=== PATIENT | male | born 1955 | race Caucasian/White ===

== ENCOUNTER 2019-04-26 09:00 | Observation (INO) ==
[2019-04-26] MEDS ORDERED: Mag Hydrox/Al Hydrox/Simeth 30 ML UDC PO PRN (11:00)
[2019-04-26] MEDS ORDERED: Naloxone 0.4 MG/ML INJ IVP PRN (11:00)
[2019-04-26 11:25] LABS: Basophils % 0.7 %; Eosinophils # 0.1 K/mcL (0.0-0.6); Eosinophils % 1.6 %; Hematocrit 44.2 % (37.5-50.1); Hemoglobin 15.9 g/dL (12.9-16.9); Immature Granulocytes % 0.4 % (0-4); Lymphocytes # 1.8 K/mcL (0.6-4.6); Mean Corpuscular Hemoglobin 35.1 pg (28.0-33.3); Mean Corpuscular Volume 97.6 fL (83.0-100.0); Monocytes # 0.6 K/mcL (0.0-1.3); Monocytes % 10.6 %; Neutrophils # 3.1 K/mcL (1.6-8.9); Platelet Count 190 K/mcL (140-400); Red Blood Count 4.53 M/mcL (4.19-5.50); Red Cell Distribution Width 12.7 % (11.5-14.5); Segmented Neutrophils % 54.7 %; White Blood Count 5.7 K/mcL (4.3-11.1)
[2019-04-26 11:43] LABS: BUN/Creatinine Ratio 16 (6-26); Blood Urea Nitrogen 18 mg/dL (8-23); Calcium 8.7 mg/dL (8.6-10.3); Carbon Dioxide 23 mEq/L (23-29); Chloride 109 mEq/L (98-107); Glucose 102 mg/dL (70-105); Osmolality,Calculated 286 (280-300); Sodium 137 mEq/L (136-145); eGFR For African Americans > 60 (> 60); eGFR For Non-African Americans > 60 (> 60)
[2019-04-26] MEDS: carvediloL 6.25 MG TABLET PO SCH (18:49)
[2019-04-26] MEDS: Acetaminophen 325 MG TABLET PO PRN (20:28)
[2019-04-27] MEDS ORDERED: Isosorbide MONOnitrate (24 HR) 30 MG TAB.ER.24H PO SCH (09:00)
[2019-04-27] MEDS: Aspirin Enteric Coated 81 MG Tablet PO SCH (09:18)
[2019-04-27] MEDS: DilTIAZem CD (24hr) 240 MG CAP.ER.24H PO SCH (09:18)
[2019-04-27] MEDS: carvediloL 6.25 MG TABLET PO SCH (09:20)
[2019-04-27] MEDS: Acetaminophen 325 MG TABLET PO PRN (12:15)
[2019-04-27] MEDS ORDERED: GI Cocktail 40 ML EACH PO ONE (12:49)
[2019-04-27] MEDS ORDERED: Isosorbide MONOnitrate (24 HR) 30 MG TAB.ER.24H PO STA (14:02)
[2019-04-27] MEDS ORDERED: *HR* Rivaroxaban 10 MG TABLET PO SCH (17:00)
[2019-04-28 06:32] VITALS: BP 119/74
[2019-04-28] MEDS ORDERED: Isosorbide MONOnitrate (24 HR) 30 MG TAB.ER.24H PO SCH (09:00)
[2019-04-28] MEDS: DilTIAZem CD (24hr) 240 MG CAP.ER.24H PO SCH (09:14)
[2019-04-28] MEDS: Aspirin Enteric Coated 81 MG Tablet PO SCH (09:31)
[2019-04-29] MEDS ORDERED: DilTIAZem CD (24hr) 120 MG CAP.ER.24H PO SCH (09:00)
== END 2019-04-28 11:07 | disposition home or self-care (01) ==
LOC: 3BNU
PROVIDERS: ADMIT Internal Medicine Clinical Cardiac Electrophysiology; ATTEND Internal Medicine Clinical Cardiac Electrophysiology

== ENCOUNTER 2020-03-09 14:21 | Inpatient (IN) ==
[2020-03-09 15:29] LABS: Basophils % 0.6 %; Eosinophils # 0.1 K/mcL (0.0-0.6); Eosinophils % 2.3 %; Hematocrit 23.4 % (37.5-50.1); Hemoglobin 6.8 g/dL (12.9-16.9); Immature Granulocytes % 0.4 % (0-4); Lymphocytes # 1.5 K/mcL (0.6-4.6); Lymphocytes % 28.1 %; Mean Corpuscular HGB Conc 29.1 g/dL (31.6-35.5); Mean Corpuscular Hemoglobin 24.8 pg (28.0-33.3); Mean Corpuscular Volume 85.4 fL (83.0-100.0); Mean Platelet Volume 9.7 fL (9.4-12.4); Monocytes # 0.5 K/mcL (0.0-1.3); Monocytes % 9.8 %; Neutrophils # 3.1 K/mcL (1.6-8.9); Platelet Count 323 K/mcL (140-400); Red Blood Count 2.74 M/mcL (4.19-5.50); Red Cell Distribution Width 16.1 % (11.5-14.5); Segmented Neutrophils % 58.8 %; White Blood Count 5.2 K/mcL (4.3-11.1)
[2020-03-09 15:51] LABS: BUN/Creatinine Ratio 8 (6-26); Blood Urea Nitrogen 9 mg/dL (8-23); Calcium 8.5 mg/dL (8.6-10.3); Carbon Dioxide 23 mEq/L (23-29); Chloride 102 mEq/L (98-107); Glucose 157 mg/dL (70-105); Osmolality,Calculated 282 (280-300); Potassium 3.5 mEq/L (3.5-5.1); Sodium 135 mEq/L (136-145); eGFR For African Americans > 60 (> 60); eGFR For Non-African Americans > 60 (> 60)
[2020-03-09 15:52] LABS: Troponin I < 0.03 ng/mL (< 0.04)
[2020-03-09] MEDS ORDERED: Pantoprazole 40 MG VIAL IVP ONE (16:24)
[2020-03-09 16:59] LABS: % Iron Saturation 4 % (20-55); Iron 23 mcg/dL (65-175); Transferrin 402 mg/dL (203-362)
[2020-03-09] MEDS ORDERED: 0.9 % Sodium Chloride 250 ML ONE (18:21)
[2020-03-09] MEDS: Aspirin Enteric Coated 81 MG Tablet PO SCH (22:34)
[2020-03-09] MEDS: Nicotine 7 MG PATCH.TD24 TD SCH (22:35)
[2020-03-10 00:58] LABS: INR 1.4; Prothrombin Time 15.4 Seconds (9.4-12.1)
[2020-03-10 01:01] LABS: Activated Partial Thrombo Time 32.6 Seconds (26.0-36.0)
[2020-03-10 01:03] LABS: BUN/Creatinine Ratio 8 (6-26); Blood Urea Nitrogen 8 mg/dL (8-23); Calcium 8.7 mg/dL (8.6-10.3); Carbon Dioxide 23 mEq/L (23-29); Chloride 102 mEq/L (98-107); Glucose 157 mg/dL (70-105); Osmolality,Calculated 282 (280-300); Potassium 3.1 mEq/L (3.5-5.1); Sodium 135 mEq/L (136-145); eGFR For African Americans > 60 (> 60); eGFR For Non-African Americans > 60 (> 60)
[2020-03-10 01:16] LABS: Hematocrit 26.1 % (37.5-50.1); Hemoglobin 7.5 g/dL (12.9-16.9)
[2020-03-10] MEDS ORDERED: 0.9 % Sodium Chloride 250 ML IVC SCH (02:00)
[2020-03-10 07:32] LABS: Hematocrit 28.2 % (37.5-50.1); Hemoglobin 8.3 g/dL (12.9-16.9)
[2020-03-10 07:37] LABS: Basophils % 0.5 %; Eosinophils # 0.1 K/mcL (0.0-0.6); Hematocrit 28.3 % (37.5-50.1); Hemoglobin 8.5 g/dL (12.9-16.9); Immature Granulocytes % 0.3 % (0-4); Lymphocytes # 1.3 K/mcL (0.6-4.6); Mean Corpuscular Hemoglobin 25.8 pg (28.0-33.3); Mean Platelet Volume 9.7 fL (9.4-12.4); Monocytes # 0.6 K/mcL (0.0-1.3); Monocytes % 16.2 %; Neutrophils # 1.7 K/mcL (1.6-8.9); Platelet Count 297 K/mcL (140-400); Red Blood Count 3.29 M/mcL (4.19-5.50); Red Cell Distribution Width 15.3 % (11.5-14.5); White Blood Count 3.7 K/mcL (4.3-11.1)
[2020-03-10] MEDS: Aspirin Enteric Coated 81 MG Tablet PO SCH (07:57)
[2020-03-10] MEDS: Nicotine 7 MG PATCH.TD24 TD SCH (07:58)
[2020-03-10] MEDS: Pantoprazole 40 MG VIAL IVP SCH ×2 (08:01→17:01)
[2020-03-10] MEDS: Tiotropium 18 MCG inhalation IH SCH (08:15)
[2020-03-10] MEDS: carvediloL 6.25 MG TABLET PO SCH ×2 (09:09→17:01)
[2020-03-10] MEDS: DilTIAZem CD (24hr) 120 MG CAP.ER.24H PO SCH (09:09)
[2020-03-10] MEDS ORDERED: *HR* FentaNYL (PF) 100 MCG/2 ML VIAL ONE (09:25)
[2020-03-10] MEDS ORDERED: *HR* Midazolam HCl 5 MG/5 ML VIAL IVP ONE ×2 (09:25→09:33)
[2020-03-10] MEDS ORDERED: *HR* FentaNYL (PF) 100 MCG/2 ML VIAL IVP ONE (09:33)
[2020-03-10] MEDS ORDERED: Simethicone 40 MG/0.6 ML MLS IR ONE (09:33)
[2020-03-10] MEDS ORDERED: Tetracaine/Benzocaine/Butamben 1 SPRAY AEROSOL MM ONE (09:33)
[2020-03-10] MEDS ORDERED: Ferumoxytol 510 MG in 0.9 % Sodium Chloride 100 ML IVPB ONE (10:07)
[2020-03-10] MEDS: Isosorbide MONOnitrate (24 HR) 30 MG TAB.ER.24H PO SCH (11:43)
[2020-03-10 12:37] LABS: Hematocrit 27.7 % (37.5-50.1); Hemoglobin 8.4 g/dL (12.9-16.9)
[2020-03-10 15:38] LABS: Hematocrit 28.9 % (37.5-50.1); Hemoglobin 8.5 g/dL (12.9-16.9)
[2020-03-11] MEDS: Pantoprazole 40 MG VIAL IVP SCH (05:03)
[2020-03-11 07:17] LABS: Hematocrit 28.7 % (37.5-50.1); Hemoglobin 8.3 g/dL (12.9-16.9); Mean Corpuscular HGB Conc 28.9 g/dL (31.6-35.5); Mean Corpuscular Hemoglobin 25.3 pg (28.0-33.3); Mean Corpuscular Volume 87.5 fL (83.0-100.0); Mean Platelet Volume 9.5 fL (9.4-12.4); Platelet Count 277 K/mcL (140-400); Red Blood Count 3.28 M/mcL (4.19-5.50); Red Cell Distribution Width 15.7 % (11.5-14.5)
[2020-03-11 07:36] LABS: BUN/Creatinine Ratio 10 (6-26); Blood Urea Nitrogen 10 mg/dL (8-23); Calcium 8.5 mg/dL (8.6-10.3); Carbon Dioxide 24 mEq/L (23-29); Chloride 109 mEq/L (98-107); Glucose 110 mg/dL (70-105); Osmolality,Calculated 286 (280-300); Potassium 4.1 mEq/L (3.5-5.1); Sodium 138 mEq/L (136-145); eGFR For African Americans > 60 (> 60); eGFR For Non-African Americans > 60 (> 60)
[2020-03-11] MEDS: Tiotropium 18 MCG inhalation IH SCH (07:49)
[2020-03-11] MEDS: Nicotine 7 MG PATCH.TD24 TD SCH (10:04)
[2020-03-11] MEDS: carvediloL 6.25 MG TABLET PO SCH (10:04)
[2020-03-11] MEDS: DilTIAZem CD (24hr) 120 MG CAP.ER.24H PO SCH (10:04)
[2020-03-11] MEDS: Isosorbide MONOnitrate (24 HR) 30 MG TAB.ER.24H PO SCH (10:04)
[2020-03-11] MEDS: Aspirin Enteric Coated 81 MG Tablet PO SCH (10:04)
[2020-03-11 10:29] VITALS: BP 154/74
== END 2020-03-11 12:03 | disposition home or self-care (01) | DRG 378 ==
LOC: 3BNU 14:21 → EMEROOARM 14:21 → 3BNU 17:20
PROVIDERS: ADMIT Internal Medicine; ATTEND Internal Medicine
PROC: ENDOEBX (2020-03-10 13:25)

== ENCOUNTER 2020-04-17 08:21 | Inpatient (IN) ==
[2020-04-17 10:18] LABS: Basophils % 0.5 %; Eosinophils # 0.1 K/mcL (0.0-0.6); Eosinophils % 3.4 %; Hematocrit 33.4 % (37.5-50.1); Lymphocytes # 1.3 K/mcL (0.6-4.6); Mean Corpuscular HGB Conc 29.9 g/dL (31.6-35.5); Mean Corpuscular Hemoglobin 25.9 pg (28.0-33.3); Mean Corpuscular Volume 86.5 fL (83.0-100.0); Monocytes # 0.5 K/mcL (0.0-1.3); Monocytes % 11.9 %; Neutrophils # 1.9 K/mcL (1.6-8.9); Platelet Count 214 K/mcL (140-400); Red Blood Count 3.86 M/mcL (4.19-5.50); Red Cell Distribution Width 18.9 % (11.5-14.5); Segmented Neutrophils % 50.2 %; White Blood Count 3.8 K/mcL (4.3-11.1)
[2020-04-17 10:34] LABS: BUN/Creatinine Ratio 14 (6-26); Blood Urea Nitrogen 15 mg/dL (8-23); Calcium 8.4 mg/dL (8.6-10.3); Carbon Dioxide 24 mEq/L (23-29); Chloride 108 mEq/L (98-107); Glucose 120 mg/dL (70-105); Osmolality,Calculated 290 (280-300); Potassium 3.7 mEq/L (3.5-5.1); Sodium 139 mEq/L (136-145); eGFR For African Americans > 60 (> 60); eGFR For Non-African Americans > 60 (> 60)
[2020-04-17] MEDS ORDERED: Levalbuterol 1 PUFF INHALER IH PRN (11:28)
[2020-04-17] MEDS: *HR* Rivaroxaban 10 MG TABLET PO SCH (11:48)
[2020-04-17] MEDS: Nicotine 21 MG PATCH.TD24 TD SCH (11:57)
[2020-04-17] MEDS: Tiotropium 18 MCG inhalation IH SCH (11:57)
[2020-04-18] MEDS: Tiotropium 18 MCG inhalation IH SCH (08:06)
[2020-04-18] MEDS: Nicotine 21 MG PATCH.TD24 TD SCH (08:53)
[2020-04-18] MEDS: hydroCHLOROthiazide 25 MG TABLET PO SCH (08:53)
[2020-04-18] MEDS: Aspirin Enteric Coated 81 MG Tablet PO SCH (08:53)
[2020-04-18] MEDS: Isosorbide MONOnitrate (24 HR) 60 MG TAB.ER.24H PO SCH (08:53)
[2020-04-18] MEDS: DilTIAZem CD (24hr) 120 MG CAP.ER.24H PO SCH (08:53)
[2020-04-18] MEDS: *HR* Rivaroxaban 10 MG TABLET PO SCH (17:34)
[2020-04-19] MEDS: Tiotropium 18 MCG inhalation IH SCH (07:25)
[2020-04-19] MEDS: Nicotine 21 MG PATCH.TD24 TD SCH (09:14)
[2020-04-19] MEDS: hydroCHLOROthiazide 25 MG TABLET PO SCH (09:15)
[2020-04-19] MEDS: DilTIAZem CD (24hr) 120 MG CAP.ER.24H PO SCH (09:15)
[2020-04-19] MEDS: Isosorbide MONOnitrate (24 HR) 60 MG TAB.ER.24H PO SCH (09:15)
[2020-04-19] MEDS: Aspirin Enteric Coated 81 MG Tablet PO SCH (09:15)
[2020-04-19] MEDS: *HR* Rivaroxaban 10 MG TABLET PO SCH (17:04)
[2020-04-19 19:16] VITALS: BP 122/68
== END 2020-04-19 19:40 | disposition home or self-care (01) | DRG 309 ==
LOC: 3ANU
PROVIDERS: ADMIT Internal Medicine Clinical Cardiac Electrophysiology; ATTEND Internal Medicine Clinical Cardiac Electrophysiology

== ENCOUNTER 2020-08-14 07:22 | Observation (INO) ==
[2020-08-14] MEDS ORDERED: 0.9 % Sodium Chloride 1,000 ML IVC SCH (07:45)
[2020-08-14] MEDS ORDERED: *HR* Heparin 10,000 UNIT/10 ML VIAL ONE (07:57)
[2020-08-14] MEDS ORDERED: Protamine Sulfate 50 MG/5 ML VIAL IVP ONE ×3 (07:57→10:51)
[2020-08-14] MEDS ORDERED: Heparin 1,000 UNITS/500 mL 2,000 ML ONE (07:57)
[2020-08-14] MEDS ORDERED: 0.9 % Sodium Chloride 1,000 ML ONE ×2 (07:57→10:41)
[2020-08-14] MEDS ORDERED: ISOVUE-370 200 ML INFUS..BTL ONE (07:58)
[2020-08-14] MEDS ORDERED: *HR* FentaNYL (PF) 250 MCG/5 ML VIAL ONE (08:13)
[2020-08-14 08:46] LABS: INR 3.4; Prothrombin Time 38.3 Seconds (9.4-12.1)
[2020-08-14] MEDS ORDERED: Naloxone 0.4 MG/ML INJ IVP PRN (11:04)
[2020-08-14] MEDS ORDERED: Levalbuterol 1 PUFF INHALER IH PRN (12:00)
[2020-08-14] MEDS ORDERED: Lidocaine -MPF 2% 5 ML VIAL SQ ONE (14:20)
[2020-08-14] MEDS ORDERED: EPHEDrine 50 MG/ML VIAL IVP ONE (14:20)
[2020-08-14] MEDS ORDERED: Ondansetron 4 MG/2 ML VIAL IVP ONE (14:20)
[2020-08-14] MEDS ORDERED: *HR* Phenylephrine 10 MG/ML VIAL IVC ONE (14:20)
[2020-08-14] MEDS ORDERED: *HR* Succinylcholine 200 MG/10 ML VIAL IVP ONE (14:20)
[2020-08-14] MEDS ORDERED: *HR* Propofol 200 MG/20 ML VIAL IVP ONE (14:20)
[2020-08-14] MEDS ORDERED: *HR* Rocuronium Bromide 50 MG/5 ML VIAL IVP ONE (14:20)
[2020-08-15] MEDS ORDERED: Isosorbide MONOnitrate (24 HR) 30 MG TAB.ER.24H PO SCH (09:00)
[2020-08-15] MEDS ORDERED: hydroCHLOROthiazide 25 MG TABLET PO SCH (09:00)
[2020-08-15] MEDS ORDERED: amLODIPine 5 MG TABLET PO SCH (09:00)
[2020-08-15] MEDS ORDERED: DilTIAZem CD (24hr) 120 MG CAP.ER.24H PO SCH (09:00)
[2020-08-15] MEDS ORDERED: Aspirin Enteric Coated 81 MG Tablet PO SCH (09:00)
[2020-08-15] MEDS ORDERED: Tiotropium 18 MCG inhalation IH SCH (09:00)
[2020-08-15 11:17] VITALS: BP 116/76
== END 2020-08-15 13:10 | disposition home or self-care (01) ==
LOC: INVDIALAB 07:22 → ICNU 14:19 → INTOOBSV 14:19
PROVIDERS: ADMIT Internal Medicine Clinical Cardiac Electrophysiology; ATTEND Internal Medicine Clinical Cardiac Electrophysiology

== ENCOUNTER 2020-09-28 10:07 | Inpatient (IN) ==
[2020-09-28 11:01] LABS: Immature Granulocytes % 0.4 % (0-4); Red Cell Distribution Width 17.5 % (11.5-14.5)
[2020-09-28 11:02] LABS: Basophils % 0.2 %; Eosinophils # 0.2 K/mcL (0.0-0.6); Eosinophils % 3.2 %; Hematocrit 24.1 % (37.5-50.1); Lymphocytes # 1.1 K/mcL (0.6-4.6); Lymphocytes % 22.9 %; Mean Corpuscular Hemoglobin 24.6 pg (28.0-33.3); Mean Corpuscular Volume 84.6 fL (83.0-100.0); Mean Platelet Volume 9.4 fL (9.4-12.4); Monocytes # 0.4 K/mcL (0.0-1.3); Monocytes % 8.5 %; Neutrophils # 3.1 K/mcL (1.6-8.9); Platelet Count 259 K/mcL (140-400); Red Blood Count 2.85 M/mcL (4.19-5.50); Segmented Neutrophils % 64.8 %; White Blood Count 4.7 K/mcL (4.3-11.1)
[2020-09-28 11:03] LABS: Activated Partial Thrombo Time 35.6 Seconds (26.0-36.0)
[2020-09-28 11:09] LABS: Hypochromasia Present (Not Present); Platelet Estimate Normal (Normal)
[2020-09-28 11:10] LABS: BUN/Creatinine Ratio 9 (6-26); Blood Urea Nitrogen 9 mg/dL (8-23); Calcium 8.6 mg/dL (8.6-10.3); Carbon Dioxide 29 mEq/L (23-29); Chloride 104 mEq/L (98-107); Glucose 135 mg/dL (70-105); Lipase 42 Units/L (11-82); Osmolality,Calculated 289 (280-300); Sodium 139 mEq/L (136-145); Troponin I < 0.03 ng/mL (< 0.04); eGFR For African Americans > 60 (> 60); eGFR For Non-African Americans > 60 (> 60)
[2020-09-28 11:14] LABS: INR 2.7; Prothrombin Time 30.8 Seconds (9.4-12.1)
[2020-09-28] MEDS ORDERED: Isovue-370 500 ML BOTTLE IVP ONE (11:44)
[2020-09-28] MEDS ORDERED: Doxycycline 100 MG in 0.9 % Sodium Chloride Mini Bag 100 ML IVPB ONE (12:43)
[2020-09-28] MEDS ORDERED: cefTRIAXone 1,000 MG in 0.9 % Sodium Chloride Mini Bag 100 ML IVPB ONE (12:43)
[2020-09-28 12:53] LABS: Anisocytosis 1+ (Not Present)
[2020-09-28] MEDS: Aspirin 81 MG TAB.CHEW PO SCH (13:14)
[2020-09-28] MEDS ORDERED: Naloxone 0.4 MG/ML INJ IVP PRN (15:36)
[2020-09-28] MEDS ORDERED: Ondansetron 4 MG/2 ML VIAL IVP PRN (15:43)
[2020-09-28] MEDS ORDERED: 0.9 % Sodium Chloride 250 ML IVC SCH (16:00)
[2020-09-28] MEDS ORDERED: SODIUM CHLORIDE/NAHCO3/KCL/PEG 4,000 ML SOLN.RECON PO ONE (17:00)
[2020-09-28] MEDS ORDERED: 0.9 % Sodium Chloride 250 ML ONE (17:01)
[2020-09-28] MEDS ORDERED: *HR* LORazepam 1 MG TABLET PO ONE (20:54)
[2020-09-28] MEDS ORDERED: Nicotine 21 MG PATCH.TD24 TD SCH (21:30)
[2020-09-29 02:17] LABS: Basophils % 0.2 %; Eosinophils # 0.2 K/mcL (0.0-0.6); Eosinophils % 4.4 %; Hematocrit 26.8 % (37.5-50.1); Hemoglobin 7.8 g/dL (12.9-16.9); Immature Granulocytes % 0.2 % (0-4); Lymphocytes # 1.3 K/mcL (0.6-4.6); Lymphocytes % 29.7 %; Mean Corpuscular HGB Conc 29.1 g/dL (31.6-35.5); Mean Corpuscular Hemoglobin 24.5 pg (28.0-33.3); Mean Corpuscular Volume 84.3 fL (83.0-100.0); Mean Platelet Volume 9.4 fL (9.4-12.4); Monocytes # 0.5 K/mcL (0.0-1.3); Monocytes % 10.7 %; Neutrophils # 2.4 K/mcL (1.6-8.9); Platelet Count 263 K/mcL (140-400); Red Blood Count 3.18 M/mcL (4.19-5.50); Red Cell Distribution Width 17.2 % (11.5-14.5); Segmented Neutrophils % 54.8 %; White Blood Count 4.3 K/mcL (4.3-11.1)
[2020-09-29 02:39] LABS: % Iron Saturation 20 % (20-55); BUN/Creatinine Ratio 8 (6-26); Blood Urea Nitrogen 7 mg/dL (8-23); Calcium 8.7 mg/dL (8.6-10.3); Carbon Dioxide 25 mEq/L (23-29); Chloride 104 mEq/L (98-107); Glucose 109 mg/dL (70-105); Iron 94 mcg/dL (65-175); Magnesium 2.1 mg/dL (1.6-2.6); Osmolality,Calculated 281 (280-300); Potassium 3.4 mEq/L (3.5-5.1); Sodium 136 mEq/L (136-145); Transferrin 330 mg/dL (203-362); eGFR For African Americans > 60 (> 60); eGFR For Non-African Americans > 60 (> 60)
[2020-09-29 03:03] LABS: Folate 16.5 ng/mL (3.0-16.0)
[2020-09-29 03:17] LABS: Ferritin < 8 ng/mL (20-250)
[2020-09-29] MEDS ORDERED: Cyanocobalamin (B-12) 1,000 MCG/ML VIAL SQ ONE (07:14)
[2020-09-29] MEDS: Iron Sucrose Complex 250 MG in 0.9 % Sodium Chloride 250 ML IVPB SCH (08:02)
[2020-09-29] MEDS: Nicotine 14 MG PATCH.TD24 TD SCH (08:10)
[2020-09-29] MEDS ORDERED: Potassium Chloride 20 MEQ, Lidocaine 1% 2 ML in 0.9 % Sodium Chloride 250 ML IVPB ONE (08:15)
[2020-09-29] MEDS: Aspirin 81 MG TAB.CHEW PO SCH (08:43)
[2020-09-29] MEDS ORDERED: Lidocaine -MPF 2% 2 ML VIAL ONE (08:56)
[2020-09-29] MEDS ORDERED: *HR* Propofol 200 MG/20 ML VIAL IVP ONE ×2 (08:56→08:57)
[2020-09-29 10:51] LABS: INR 1.2; Prothrombin Time 14.3 Seconds (9.4-12.1)
[2020-09-29] MEDS ORDERED: Levalbuterol 1 PUFF INHALER IH PRN (12:00)
[2020-09-29 12:50] LABS: Estimated Average Glucose 134 mg/dl
[2020-09-29] MEDS: Isosorbide MONOnitrate (24 HR) 30 MG TAB.ER.24H PO SCH (13:46)
[2020-09-29] MEDS: DilTIAZem CD (24hr) 120 MG CAP.ER.24H PO SCH (13:46)
[2020-09-29] MEDS ORDERED: Gabapentin 100 MG CAPSULE PO ONE (14:32)
[2020-09-29] MEDS: *HR* Rivaroxaban 10 MG TABLET PO SCH (18:20)
[2020-09-29] MEDS: Acetaminophen 325 MG TABLET PO PRN (22:13)
[2020-09-30 02:28] LABS: Basophils % 0.7 %; Eosinophils # 0.2 K/mcL (0.0-0.6); Eosinophils % 3.6 %; Hematocrit 26.8 % (37.5-50.1); Hemoglobin 7.4 g/dL (12.9-16.9); Immature Granulocytes % 0.4 % (0-4); Lymphocytes % 29.9 %; Mean Corpuscular HGB Conc 27.6 g/dL (31.6-35.5); Mean Corpuscular Hemoglobin 23.6 pg (28.0-33.3); Mean Corpuscular Volume 85.4 fL (83.0-100.0); Mean Platelet Volume 9.4 fL (9.4-12.4); Monocytes # 0.5 K/mcL (0.0-1.3); Monocytes % 11.7 %; Neutrophils # 2.4 K/mcL (1.6-8.9); Platelet Count 294 K/mcL (140-400); Red Blood Count 3.14 M/mcL (4.19-5.50); Red Cell Distribution Width 17.5 % (11.5-14.5); Segmented Neutrophils % 53.7 %; White Blood Count 4.5 K/mcL (4.3-11.1)
[2020-09-30 02:30] LABS: Lymphocytes # 1.4 K/mcL (0.6-4.6)
[2020-09-30 02:44] LABS: BUN/Creatinine Ratio 15 (6-26); Blood Urea Nitrogen 14 mg/dL (8-23); Calcium 8.8 mg/dL (8.6-10.3); Carbon Dioxide 26 mEq/L (23-29); Chloride 111 mEq/L (98-107); Glucose 121 mg/dL (70-105); Magnesium 2.1 mg/dL (1.6-2.6); Osmolality,Calculated 290 (280-300); Potassium 3.9 mEq/L (3.5-5.1); Sodium 139 mEq/L (136-145); eGFR For African Americans > 60 (> 60); eGFR For Non-African Americans > 60 (> 60)
[2020-09-30 02:53] LABS: Anisocytosis 1+ (Not Present); Hypochromasia Present (Not Present); Macrocytosis Present (Not Present); Platelet Estimate Normal (Normal)
[2020-09-30] MEDS ORDERED: *HR* Rivaroxaban 10 MG TABLET PO SCH (09:00)
[2020-09-30] MEDS: Budesonide/Formoterol 160/4.5 1 PUFF INH IH SCH ×2 (09:37→21:48)
[2020-09-30] MEDS: Tiotropium 18 MCG inhalation IH SCH (09:39)
[2020-09-30] MEDS ORDERED: 0.9 % Sodium Chloride 250 ML ONE (09:47)
[2020-09-30] MEDS: Nicotine 14 MG PATCH.TD24 TD SCH (09:49)
[2020-09-30] MEDS: DilTIAZem CD (24hr) 120 MG CAP.ER.24H PO SCH (09:50)
[2020-09-30] MEDS: Aspirin Enteric Coated 81 MG Tablet PO SCH (09:50)
[2020-09-30] MEDS: Isosorbide MONOnitrate (24 HR) 30 MG TAB.ER.24H PO SCH (09:50)
[2020-09-30] MEDS: Iron Sucrose Complex 250 MG in 0.9 % Sodium Chloride 250 ML IVPB SCH (09:51)
[2020-09-30] MEDS: Gabapentin 100 MG CAPSULE PO SCH ×2 (12:41→20:17)
[2020-09-30] MEDS: *HR* Rivaroxaban 10 MG TABLET PO SCH (16:46)
[2020-09-30] MEDS: Acetaminophen 325 MG TABLET PO PRN (16:46)
[2020-10-01 03:08] LABS: Hemoglobin 8.8 g/dL (12.9-16.9)
[2020-10-01 03:09] LABS: Basophils # 0.1 K/mcL (0.0-0.2); Basophils % 0.9 %; Eosinophils # 0.3 K/mcL (0.0-0.6); Hematocrit 31.2 % (37.5-50.1); Lymphocytes # 1.7 K/mcL (0.6-4.6); Lymphocytes % 25.6 %; Mean Corpuscular HGB Conc 28.2 g/dL (31.6-35.5); Mean Corpuscular Hemoglobin 24.8 pg (28.0-33.3); Mean Corpuscular Volume 87.9 fL (83.0-100.0); Mean Platelet Volume 9.9 fL (9.4-12.4); Monocytes # 0.6 K/mcL (0.0-1.3); Nucleated Red Blood Cells 0.4 /100 WBC (0); Platelet Count 347 K/mcL (140-400); Red Blood Count 3.55 M/mcL (4.19-5.50); Red Cell Distribution Width 17.2 % (11.5-14.5); Segmented Neutrophils % 59.5 %; White Blood Count 6.7 K/mcL (4.3-11.1)
[2020-10-01 03:12] LABS: Anisocytosis 1+ (Not Present); Hypochromasia Present (Not Present); Macrocytosis Present (Not Present); Platelet Estimate Normal (Normal)
[2020-10-01 07:20] VITALS: BP 135/82
[2020-10-01] MEDS: Gabapentin 100 MG CAPSULE PO SCH (08:09)
[2020-10-01] MEDS: DilTIAZem CD (24hr) 120 MG CAP.ER.24H PO SCH (08:09)
[2020-10-01] MEDS: Aspirin Enteric Coated 81 MG Tablet PO SCH (08:09)
[2020-10-01] MEDS: Isosorbide MONOnitrate (24 HR) 30 MG TAB.ER.24H PO SCH (08:09)
[2020-10-01] MEDS: Nicotine 14 MG PATCH.TD24 TD SCH (08:09)
[2020-10-01] MEDS: Iron Sucrose Complex 250 MG in 0.9 % Sodium Chloride 250 ML IVPB SCH (08:10)
[2020-10-01] MEDS: Tiotropium 18 MCG inhalation IH SCH (09:07)
[2020-10-01] MEDS: Budesonide/Formoterol 160/4.5 1 PUFF INH IH SCH (09:07)
== END 2020-10-01 11:50 | disposition home or self-care (01) | DRG 811 ==
LOC: EMEROOARM 10:07 → 3BNU 10:07 → SUATTDRO 14:41 → 3BNU 15:53
PROVIDERS: ADMIT Pharmacist; ATTEND Pharmacist
PROC: ENDOCBX (2020-09-29 11:00)

== ENCOUNTER 2020-11-28 08:26 | Inpatient (IN) ==
[~2020-11-28 08:26] MED LIST: Bacitracin 50,000 UNIT, Polymyxin B Sulfate 500,000 UNIT, Sodium Chloride IRRigation 1,... IR ONE
[2020-11-28] MEDS ORDERED: Ondansetron 4 MG/2 ML VIAL IVP PRN ×3 (08:29→19:16)
[2020-11-28] MEDS ORDERED: *HR* HYDROcodone/Acet 5/325 mg TABLET PO PRN (08:29)
[2020-11-28] MEDS ORDERED: *HR* HYDROmorphone PF 0.5 MG/0.5 ML SYRINGE IVP PRN (08:29)
[2020-11-28] MEDS ORDERED: Ringers Solution, Lactated 1,000 ML IVC SCH ×2 (08:30→19:16)
[2020-11-28] MEDS ORDERED: CeFAZolin Syr 2,000MG/20 ML 2,000 MG/20 ML SYRINGE IVPB ONE (09:04)
[2020-11-28] MEDS ORDERED: *HR* FentaNYL (PF) 100 MCG/2 ML VIAL ONE (10:15)
[2020-11-28] MEDS ORDERED: *HR* Propofol 200 MG/20 ML VIAL IVP ONE ×2 (10:15→16:46)
[2020-11-28] MEDS ORDERED: *HR* Midazolam HCl 2 MG/2 ML VIAL ONE (10:16)
[2020-11-28] MEDS ORDERED: *HR* Rocuronium Bromide 50 MG/5 ML VIAL ONE (10:16)
[2020-11-28] MEDS ORDERED: *HR* Succinylcholine 200 MG/10 ML VIAL IVP ONE (10:16)
[2020-11-28] MEDS ORDERED: Ondansetron 4 MG/2 ML VIAL ONE (10:16)
[2020-11-28] MEDS ORDERED: Lidocaine -MPF 2% 2 ML VIAL ONE (10:16)
[2020-11-28] MEDS ORDERED: Lidocaine HCL 4 ML Topical Solution (Laryng-O-Jet Kit Sterile Pak) TP ONE (10:25)
[2020-11-28] MEDS ORDERED: *HR* HYDROMORPHONE 2 MG/ML VIAL ONE ×2 (10:38→16:00)
[2020-11-28] MEDS ORDERED: *HR* Remifentanil 1 MG VIAL IVP ONE ×3 (11:36→16:10)
[2020-11-28] MEDS ORDERED: EPHEDrine 50 MG/ML VIAL ONE (13:11)
[2020-11-28] MEDS ORDERED: Acetaminophen IV 1,000 MG/100 ML BAG IVPB ONE (15:03)
[2020-11-28] MEDS ORDERED: Promethazine 6.25 MG in Water for inj. (sterile) 20 ML IVPB PRN (17:22)
[2020-11-28] MEDS ORDERED: *HR* Labetalol 20 MG/4 ML SYRINGE IVP PRN (17:22)
[2020-11-28] MEDS ORDERED: *HR* HYDROcodone/Acet 7.5/325 mg TABLET PO PRN (17:22)
[2020-11-28] MEDS: *HR* HYDROmorphone PF 0.5 MG/0.5 ML SYRINGE IVP PRN ×2 (17:35→17:40)
[2020-11-28] MEDS ORDERED: Levalbuterol 1 PUFF INHALER IH PRN (19:16)
[2020-11-28] MEDS ORDERED: Naloxone 0.4 MG/ML INJ IVP PRN (19:16)
[2020-11-28] MEDS: tiZANidine 4 MG TABLET PO SCH (20:31)
[2020-11-28] MEDS: *HR* OxyCODONE Immed Rel 5 MG TABLET PO PRN (20:31)
[2020-11-28] MEDS: CeFAZolin 2 GM/120 ML BAG IVPB SCH (20:32)
[2020-11-29] MEDS: *HR* OxyCODONE Immed Rel 5 MG TABLET PO PRN ×5 (01:55→18:34)
[2020-11-29] MEDS: CeFAZolin 2 GM/120 ML BAG IVPB SCH (03:38)
[2020-11-29] MEDS: tiZANidine 4 MG TABLET PO SCH ×5 (03:38→20:03)
[2020-11-29] MEDS: diazePAM 5 MG TABLET PO PRN ×2 (07:59→18:53)
[2020-11-29] MEDS: Tiotropium 10 INH DOSE IH SCH (08:52)
[2020-11-29] MEDS: Budesonide/Formoterol 160/4.5 1 PUFF INH IH SCH ×2 (08:52→20:16)
[2020-11-29] MEDS ORDERED: NON-FORMULARY MEDICATION 1 EACH EACH (Umeclidinium Bromide [Incruse Ellipta] 62.5 MCG) IH SCH (09:00)
[2020-11-29] MEDS ORDERED: NON-FORMULARY MEDICATION 1 EACH EACH (Pantoprazole Sodium [Protonix] 40 MG) PO SCH (09:00)
[2020-11-29] MEDS ORDERED: NON-FORMULARY MEDICATION 1 EACH EACH (Fluticasone/Umeclidin/Vilanter [Trelegy Ellipta 100- IH SCH (09:00)
[2020-11-29] MEDS: DilTIAZem CD (24hr) 120 MG CAP.ER.24H PO SCH (10:01)
[2020-11-29] MEDS: Acetaminophen 325 MG TABLET PO PRN ×2 (10:01→18:33)
[2020-11-29] MEDS: hydroCHLOROthiazide 25 MG TABLET PO SCH (10:02)
[2020-11-29] MEDS: Isosorbide MONOnitrate (24 HR) 30 MG TAB.ER.24H PO SCH (10:02)
[2020-11-29] MEDS: Aspirin Enteric Coated 81 MG Tablet PO SCH (10:03)
[2020-11-29] MEDS ORDERED: Temazepam 15 MG CAPSULE PO PRN (13:03)
[2020-11-29] MEDS: *HR* Rivaroxaban 10 MG TABLET PO SCH (17:01)
[2020-11-29] MEDS: Gabapentin 300 MG CAPSULE PO SCH (20:03)
[2020-11-29] MEDS: *HR* HYDROcodone/Acet 5/325 mg TABLET PO PRN (22:09)
[2020-11-30] MEDS: *HR* OxyCODONE Immed Rel 5 MG TABLET PO PRN ×4 (00:07→13:48)
[2020-11-30] MEDS: Acetaminophen 325 MG TABLET PO PRN (05:39)
[2020-11-30] MEDS: DilTIAZem CD (24hr) 120 MG CAP.ER.24H PO SCH (08:31)
[2020-11-30] MEDS: Aspirin Enteric Coated 81 MG Tablet PO SCH (08:31)
[2020-11-30] MEDS: tiZANidine 4 MG TABLET PO SCH ×4 (08:32→20:05)
[2020-11-30] MEDS: Isosorbide MONOnitrate (24 HR) 30 MG TAB.ER.24H PO SCH (08:32)
[2020-11-30] MEDS: Gabapentin 300 MG CAPSULE PO SCH ×3 (08:33→20:05)
[2020-11-30] MEDS: hydroCHLOROthiazide 25 MG TABLET PO SCH (08:33)
[2020-11-30] MEDS: Budesonide/Formoterol 160/4.5 1 PUFF INH IH SCH ×2 (10:57→20:14)
[2020-11-30] MEDS: Tiotropium 10 INH DOSE IH SCH (10:57)
[2020-11-30 11:38] LABS: Basophils % 0.4 %; Hemoglobin 6.5 g/dL (12.9-16.9)
[2020-11-30 11:40] LABS: Eosinophils % 0.4 %; Hematocrit 23.2 % (37.5-50.1); Immature Granulocytes % 0.5 % (0-4); Lymphocytes # 1.1 K/mcL (0.6-4.6); Lymphocytes % 15.1 %; Mean Corpuscular Hemoglobin 23.8 pg (28.0-33.3); Mean Platelet Volume 10.3 fL (9.4-12.4); Monocytes % 12.7 %; Neutrophils # 5.3 K/mcL (1.6-8.9); Nucleated Red Blood Cells 0.3 /100 WBC (0); Platelet Count 236 K/mcL (140-400); Red Blood Count 2.73 M/mcL (4.19-5.50); Red Cell Distribution Width 18.8 % (11.5-14.5); Segmented Neutrophils % 70.9 %; White Blood Count 7.5 K/mcL (4.3-11.1)
[2020-11-30 11:58] LABS: Alanine Aminotransferase 27 Units/L (7-52); Albumin 3.5 g/dL (3.5-5.7); Albumin/Globulin Ratio 1.1 (1.1-2.2); Alkaline Phosphatase 56 Units/L (34-104); Aspartate Amino Transferase 42 Units/L (13-39); BUN/Creatinine Ratio 13 (6-26); Bilirubin,Total 0.8 mg/dL (0.3-1.0); Blood Urea Nitrogen 14 mg/dL (8-23); Calcium 8.8 mg/dL (8.6-10.3); Carbon Dioxide 27 mEq/L (23-29); Chloride 99 mEq/L (98-107); Globulin 3.2 g/dL (2.4-3.5); Glucose 142 mg/dL (70-105); Osmolality,Calculated 279 (280-300); Potassium 3.5 mEq/L (3.5-5.1); Sodium 133 mEq/L (136-145); Total Protein 6.7 g/dL (6.4-8.9); eGFR For African Americans > 60 (> 60); eGFR For Non-African Americans > 60 (> 60)
[2020-11-30 12:09] LABS: Hypochromasia Present (Not Present); Platelet Estimate Normal (Normal); Stomatocytes 1+ (Not Present)
[2020-11-30] MEDS ORDERED: Furosemide 20 MG/2 ML VIAL IVP PRN (12:37)
[2020-11-30] MEDS ORDERED: 0.9 % Sodium Chloride 250 ML IVC SCH (12:45)
[2020-11-30 14:53] LABS: Adenovirus Not Detected (Not Detect); Bordetella Pertussis Not Detected (Not Detect); Chlamydophila pneumoniae Not Detected (Not Detect); Coronavirus 229E Not Detected (Not Detect); Coronavirus HKU1 Not Detected (Not Detect); Coronavirus NL63 Not Detected (Not Detect); Coronavirus OC43 Not Detected (Not Detect); Human Metapneumovirus Not Detected (Not Detect); Human Rhinovirus/Enterovirus Not Detected (Not Detect); Influenza A Subtype 2009 H1 Not Detected (Not Detect); Influenza B Not Detected (Not Detect); Mycoplasma pneumoniae Not Detected (Not Detect); Parainfluenza Virus 1 Not Detected (Not Detect); Parainfluenza Virus 2 Not Detected (Not Detect); Parainfluenza Virus 3 Not Detected (Not Detect); Parainfluenza Virus 4 Not Detected (Not Detect); Respiratory Syncytial Virus Not Detected (Not Detect); SARS-CoV-2 Not Detected (Not Detect)
[2020-11-30] MEDS ORDERED: 0.9 % Sodium Chloride 250 ML ONE ×2 (15:31→21:07)
[2020-11-30] MEDS ORDERED: Albuterol 2.5 MG/3 ML NEBULIZER IH PRN (16:23)
[2020-11-30] MEDS ORDERED: Azithromycin 500 MG in 0.9 % Sodium Chloride 250 ML IVPB SCH (17:00)
[2020-11-30] MEDS: Acetaminophen 325 MG TABLET PO SCH ×2 (17:11→23:45)
[2020-11-30] MEDS: *HR* Rivaroxaban 10 MG TABLET PO SCH (17:12)
[2020-11-30] MEDS: predniSONE 20 MG TABLET PO SCH (18:37)
[2020-11-30] MEDS: diazePAM 5 MG TABLET PO PRN (23:45)
[2020-11-30] MEDS: *HR* HYDROcodone/Acet 5/325 mg TABLET PO PRN (23:45)
[2020-12-01] MEDS: *HR* OxyCODONE Immed Rel 5 MG TABLET PO PRN ×4 (01:19→22:32)
[2020-12-01 01:28] LABS: Basophils % 0.2 %; Hematocrit 22.5 % (37.5-50.1); Hemoglobin 6.7 g/dL (12.9-16.9); Immature Granulocytes % 0.8 % (0-4); Lymphocytes # 0.7 K/mcL (0.6-4.6); Lymphocytes % 8.2 %; Mean Corpuscular HGB Conc 29.8 g/dL (31.6-35.5); Mean Corpuscular Hemoglobin 24.5 pg (28.0-33.3); Mean Corpuscular Volume 82.1 fL (83.0-100.0); Mean Platelet Volume 9.9 fL (9.4-12.4); Monocytes % 12.2 %; Neutrophils # 6.7 K/mcL (1.6-8.9); Nucleated Red Blood Cells 0.4 /100 WBC (0); Platelet Count 193 K/mcL (140-400); Red Blood Count 2.74 M/mcL (4.19-5.50); Red Cell Distribution Width 17.3 % (11.5-14.5); Segmented Neutrophils % 78.6 %; White Blood Count 8.5 K/mcL (4.3-11.1)
[2020-12-01 05:13] LABS: BUN/Creatinine Ratio 15 (6-26); Blood Urea Nitrogen 17 mg/dL (8-23); Calcium 8.4 mg/dL (8.6-10.3); Carbon Dioxide 25 mEq/L (23-29); Chloride 99 mEq/L (98-107); Glucose 172 mg/dL (70-105); Osmolality,Calculated 278 (280-300); Potassium 3.8 mEq/L (3.5-5.1); Sodium 131 mEq/L (136-145); eGFR For African Americans > 60 (> 60); eGFR For Non-African Americans > 60 (> 60)
[2020-12-01] MEDS: Acetaminophen 325 MG TABLET PO SCH ×4 (05:50→23:08)
[2020-12-01] MEDS: diazePAM 5 MG TABLET PO PRN (05:54)
[2020-12-01] MEDS: *HR* HYDROcodone/Acet 5/325 mg TABLET PO PRN (06:54)
[2020-12-01] MEDS: hydroCHLOROthiazide 25 MG TABLET PO SCH (08:29)
[2020-12-01] MEDS: Isosorbide MONOnitrate (24 HR) 30 MG TAB.ER.24H PO SCH (08:30)
[2020-12-01] MEDS ORDERED: *HR* OxyCODONE Immed Rel 5 MG TABLET PO ONE (08:31)
[2020-12-01] MEDS: Gabapentin 300 MG CAPSULE PO SCH ×4 (08:31→22:31)
[2020-12-01] MEDS: tiZANidine 4 MG TABLET PO SCH ×4 (08:32→22:33)
[2020-12-01] MEDS: predniSONE 20 MG TABLET PO SCH (08:32)
[2020-12-01] MEDS: Aspirin Enteric Coated 81 MG Tablet PO SCH (08:42)
[2020-12-01] MEDS: DilTIAZem CD (24hr) 120 MG CAP.ER.24H PO SCH (08:42)
[2020-12-01] MEDS: Tiotropium 10 INH DOSE IH SCH (10:08)
[2020-12-01] MEDS: Budesonide/Formoterol 160/4.5 1 PUFF INH IH SCH ×2 (10:09→22:35)
[2020-12-01] MEDS ORDERED: *HR* OxyCODONE Immed Rel 5 MG TABLET PO PRN (12:56)
[2020-12-01] MEDS ORDERED: diazePAM 5 MG TABLET PO PRN (13:00)
[2020-12-01] MEDS ORDERED: Azithromycin 250 MG TABLET PO SCH (18:00)
[2020-12-01 18:27] LABS: Hematocrit 27.3 % (37.5-50.1)
[2020-12-01 18:29] LABS: Hemoglobin 8.2 g/dL (12.9-16.9)
[2020-12-01 19:27] LABS: Hematocrit 27.3 % (37.5-50.1); Hemoglobin 8.1 g/dL (12.9-16.9)
[2020-12-02 05:15] LABS: Hematocrit 27.2 % (37.5-50.1); Hemoglobin 8.1 g/dL (12.9-16.9)
[2020-12-02] MEDS: *HR* OxyCODONE Immed Rel 5 MG TABLET PO PRN ×2 (05:51→13:44)
[2020-12-02] MEDS: Acetaminophen 325 MG TABLET PO SCH ×2 (05:52→13:45)
[2020-12-02 07:32] VITALS: BP 104/59
[2020-12-02] MEDS: Tiotropium 10 INH DOSE IH SCH (08:13)
[2020-12-02] MEDS: Budesonide/Formoterol 160/4.5 1 PUFF INH IH SCH (08:14)
[2020-12-02] MEDS: Aspirin Enteric Coated 81 MG Tablet PO SCH (09:52)
[2020-12-02] MEDS: hydroCHLOROthiazide 25 MG TABLET PO SCH (09:53)
[2020-12-02] MEDS: predniSONE 20 MG TABLET PO SCH (09:53)
[2020-12-02] MEDS: DilTIAZem CD (24hr) 120 MG CAP.ER.24H PO SCH (09:54)
[2020-12-02] MEDS: Isosorbide MONOnitrate (24 HR) 30 MG TAB.ER.24H PO SCH (09:54)
[2020-12-02] MEDS: Gabapentin 300 MG CAPSULE PO SCH ×2 (09:54→13:43)
[2020-12-02] MEDS: tiZANidine 4 MG TABLET PO SCH ×2 (09:56→13:44)
== END 2020-12-02 15:00 | disposition other institution (70) | DRG 454 ==
LOC: SAMDAY 08:26 → 3NENU 18:18
PROVIDERS: ADMIT Orthopaedic Surgery Orthopaedic Surgery of the Spine; ATTEND Orthopaedic Surgery Orthopaedic Surgery of the Spine

== ENCOUNTER 2021-01-09 17:33 | Inpatient (IN) ==
[2021-01-09 19:24] LABS: Basophils % 0.4 %; Eosinophils % 0.1 %; Hematocrit 37.4 % (37.5-50.1); Hemoglobin 11.2 g/dL (12.9-16.9); Immature Granulocytes % 0.4 % (0-4); Lymphocytes # 1.2 K/mcL (0.6-4.6); Mean Corpuscular HGB Conc 29.9 g/dL (31.6-35.5); Mean Corpuscular Hemoglobin 23.4 pg (28.0-33.3); Mean Corpuscular Volume 78.1 fL (83.0-100.0); Mean Platelet Volume 8.7 fL (9.4-12.4); Monocytes # 0.5 K/mcL (0.0-1.3); Monocytes % 7.7 %; Neutrophils # 5.1 K/mcL (1.6-8.9); Platelet Count 290 K/mcL (140-400); Red Blood Count 4.79 M/mcL (4.19-5.50); Red Cell Distribution Width 18.7 % (11.5-14.5); Segmented Neutrophils % 74.4 %; White Blood Count 6.9 K/mcL (4.3-11.1)
[2021-01-09 19:30] LABS: INR 2.5; Prothrombin Time 27.7 Seconds (9.4-12.1)
[2021-01-09 19:40] LABS: BUN/Creatinine Ratio 10 (6-26); Blood Urea Nitrogen 9 mg/dL (8-23); Carbon Dioxide 26 mEq/L (23-29); Chloride 96 mEq/L (98-107); Glucose 153 mg/dL (70-105); Osmolality,Calculated 278 (280-300); Potassium 3.5 mEq/L (3.5-5.1); Sodium 133 mEq/L (136-145); Troponin I < 0.03 ng/mL (< 0.04); eGFR For African Americans > 60 (> 60); eGFR For Non-African Americans > 60 (> 60)
[2021-01-09] MEDS ORDERED: Isovue-370 500 ML BOTTLE IVP ONE (20:20)
[2021-01-09] MEDS ORDERED: Gabapentin 300 MG CAPSULE PO ONE (20:36)
[2021-01-09] MEDS: Nitroglycerin 0.4 MG TAB.SUBL SL PRN (20:46)
[2021-01-09] MEDS ORDERED: Ondansetron ODT 4 MG TAB.RAPDIS SL PRN (20:58)
[2021-01-09] MEDS ORDERED: Naloxone 0.4 MG/ML INJ IVP PRN (20:58)
[2021-01-09] MEDS ORDERED: Perflutren Lipid Microsphere 1.3 ML in 0.9 % Sodium Chloride 8.7 ML IVP PRN (23:09)
[2021-01-09] MEDS: Acetaminophen 325 MG TABLET PO PRN (23:25)
[2021-01-10] MEDS: tiZANidine 4 MG TABLET PO SCH ×3 (00:36→23:13)
[2021-01-10] MEDS: Nicotine 14 MG PATCH.TD24 TD SCH ×2 (00:36→23:13)
[2021-01-10 02:18] LABS: Basophils % 0.4 %; Eosinophils % 0.3 %; Hematocrit 34.9 % (37.5-50.1); Hemoglobin 10.3 g/dL (12.9-16.9); Immature Granulocytes % 0.4 % (0-4); Lymphocytes # 1.3 K/mcL (0.6-4.6); Mean Corpuscular HGB Conc 29.5 g/dL (31.6-35.5); Mean Corpuscular Hemoglobin 23.6 pg (28.0-33.3); Mean Corpuscular Volume 79.9 fL (83.0-100.0); Mean Platelet Volume 8.8 fL (9.4-12.4); Monocytes # 0.6 K/mcL (0.0-1.3); Monocytes % 9.6 %; Neutrophils # 4.6 K/mcL (1.6-8.9); Platelet Count 235 K/mcL (140-400); Red Blood Count 4.37 M/mcL (4.19-5.50); Red Cell Distribution Width 18.9 % (11.5-14.5); Segmented Neutrophils % 69.3 %; White Blood Count 6.7 K/mcL (4.3-11.1)
[2021-01-10 02:37] LABS: BUN/Creatinine Ratio 13 (6-26); Blood Urea Nitrogen 11 mg/dL (8-23); Carbon Dioxide 28 mEq/L (23-29); Chloride 98 mEq/L (98-107); Glucose 142 mg/dL (70-105); Magnesium 1.8 mg/dL (1.6-2.6); Osmolality,Calculated 280 (280-300); Potassium 3.2 mEq/L (3.5-5.1); Sodium 134 mEq/L (136-145); eGFR For African Americans > 60 (> 60); eGFR For Non-African Americans > 60 (> 60)
[2021-01-10 02:39] LABS: INR 1.4; Prothrombin Time 16.3 Seconds (9.4-12.1)
[2021-01-10] MEDS: Nitroglycerin 0.4 MG TAB.SUBL SL PRN ×2 (06:53→07:35)
[2021-01-10] MEDS ORDERED: tiZANidine 4 MG TABLET PO PRN (07:57)
[2021-01-10] MEDS ORDERED: diazePAM 5 MG TABLET PO PRN (07:57)
[2021-01-10] MEDS ORDERED: Albuterol 2.5 MG/3 ML NEBULIZER IH PRN (08:00)
[2021-01-10] MEDS: Gabapentin 300 MG CAPSULE PO SCH ×4 (08:27→21:10)
[2021-01-10] MEDS: DilTIAZem CD (24hr) 120 MG CAP.ER.24H PO SCH (08:28)
[2021-01-10] MEDS ORDERED: Isosorbide MONOnitrate (24 HR) 30 MG TAB.ER.24H PO SCH (09:00)
[2021-01-10] MEDS: Tiotropium 10 INH DOSE IH SCH (10:35)
[2021-01-10 11:53] LABS: Hematocrit 35.1 % (37.5-50.1); Hemoglobin 10.3 g/dL (12.9-16.9)
[2021-01-10] MEDS ORDERED: *HR* Propofol 200 MG/20 ML VIAL IVP ONE (14:33)
[2021-01-10] MEDS ORDERED: Lidocaine -MPF 2% 2 ML VIAL ONE (14:34)
[2021-01-10] MEDS: Sucralfate 1 GM TABLET PO SCH ×2 (15:36→21:10)
[2021-01-10] MEDS: Acetaminophen 325 MG TABLET PO PRN ×2 (15:40→21:10)
[2021-01-10 17:32] LABS: Hematocrit 35.5 % (37.5-50.1); Hemoglobin 10.5 g/dL (12.9-16.9)
[2021-01-10] MEDS ORDERED: Doxycycline 100 MG in 0.9 % Sodium Chloride Mini Bag 100 ML IVPB SCH (18:00)
[2021-01-10] MEDS ORDERED: Temazepam 15 MG CAPSULE PO SCH (21:00)
[2021-01-10] MEDS: Ranolazine 500 MG TAB.ER.12H PO SCH (21:10)
[2021-01-10 22:44] LABS: Hematocrit 34.5 % (37.5-50.1)
[2021-01-10] MEDS ORDERED: Ipratropium/Albuterol Neb 3 ML IH ONE (23:29)
[2021-01-11 04:28] LABS: Basophils % 0.5 %; Hemoglobin 9.2 g/dL (12.9-16.9); Immature Granulocytes % 0.5 % (0-4); Mean Platelet Volume 8.9 fL (9.4-12.4)
[2021-01-11 04:29] LABS: Hematocrit 31.2 % (37.5-50.1); Lymphocytes # 1.3 K/mcL (0.6-4.6); Lymphocytes % 33.4 %; Mean Corpuscular HGB Conc 29.5 g/dL (31.6-35.5); Mean Corpuscular Hemoglobin 23.7 pg (28.0-33.3); Mean Corpuscular Volume 80.2 fL (83.0-100.0); Monocytes # 0.4 K/mcL (0.0-1.3); Monocytes % 11.4 %; Neutrophils # 2.1 K/mcL (1.6-8.9); Platelet Count 184 K/mcL (140-400); Red Blood Count 3.89 M/mcL (4.19-5.50); Red Cell Distribution Width 19.4 % (11.5-14.5); Segmented Neutrophils % 53.2 %; White Blood Count 3.9 K/mcL (4.3-11.1)
[2021-01-11 04:44] LABS: BUN/Creatinine Ratio 14 (6-26); Blood Urea Nitrogen 11 mg/dL (8-23); Calcium 8.5 mg/dL (8.6-10.3); Carbon Dioxide 29 mEq/L (23-29); Chloride 101 mEq/L (98-107); Glucose 124 mg/dL (70-105); Magnesium 1.7 mg/dL (1.6-2.6); Osmolality,Calculated 281 (280-300); Phosphorous 3.3 mg/dL (2.7-4.5); Potassium 3.4 mEq/L (3.5-5.1); Sodium 135 mEq/L (136-145); eGFR For African Americans > 60 (> 60); eGFR For Non-African Americans > 60 (> 60)
[2021-01-11] MEDS ORDERED: Regadenoson 0.4 MG/5 ML SYRINGE IVP ONE (06:24)
[2021-01-11] MEDS: Tiotropium 10 INH DOSE IH SCH (08:19)
[2021-01-11] MEDS ORDERED: Aspirin 81 MG TAB.CHEW PO SCH (09:00)
[2021-01-11] MEDS ORDERED: Isosorbide MONOnitrate (24 HR) 60 MG TAB.ER.24H PO SCH (09:00)
[2021-01-11] MEDS ORDERED: hydroCHLOROthiazide 25 MG TABLET PO SCH (09:00)
[2021-01-11] MEDS ORDERED: NON-FORMULARY MEDICATION 1 EACH EACH (Gabapentin [Neurontin] 600 MG Tablet) PO SCH (09:00)
[2021-01-11 11:05] VITALS: BP 137/81
[2021-01-11] MEDS: tiZANidine 4 MG TABLET PO SCH (11:46)
[2021-01-11] MEDS: Gabapentin 300 MG CAPSULE PO SCH (11:47)
[2021-01-11] MEDS: Ranolazine 500 MG TAB.ER.12H PO SCH (11:47)
[2021-01-11] MEDS: DilTIAZem CD (24hr) 120 MG CAP.ER.24H PO SCH (11:47)
[2021-01-11] MEDS: Sucralfate 1 GM TABLET PO SCH ×2 (11:47)
== END 2021-01-11 13:31 | disposition home or self-care (01) | DRG 378 ==
LOC: 3ANU 17:33 → EMEROOARM 17:33 → 3ANU 22:22 → SUATTDRO 01-10 15:26
PROVIDERS: ADMIT Internal Medicine; ATTEND Internal Medicine
PROC: ENDOEBX (2021-01-10 15:00)

== ENCOUNTER 2021-04-03 08:07 | Inpatient (IN) ==
[2021-04-03] MEDS ORDERED: 0.9 % Sodium Chloride 1,000 ML ONE ×3 (08:48→10:40)
[2021-04-03] MEDS ORDERED: Protamine Sulfate 50 MG/5 ML VIAL IVP ONE (10:25)
[2021-04-03] MEDS ORDERED: *HR* Heparin 10,000 UNIT/10 ML VIAL ONE (10:25)
[2021-04-03] MEDS ORDERED: Heparin 1,000 UNITS/500 mL 2,000 ML ONE (10:26)
[2021-04-03] MEDS ORDERED: ISOVUE-370 200 ML INFUS..BTL ONE (10:26)
[2021-04-03] MEDS ORDERED: Heparin 1,000 UNITS/500 mL 500 ML ONE (10:31)
[2021-04-03] MEDS ORDERED: *HR* Propofol 200 MG/20 ML VIAL IVP ONE (12:09)
[2021-04-03] MEDS ORDERED: Lidocaine -MPF 4% 5 ML AMPUL INFILT ONE (12:09)
[2021-04-03] MEDS ORDERED: Neostigmine Methylsulfate 3 MG/3 ML SYRINGE ONE ×2 (12:09→12:12)
[2021-04-03] MEDS ORDERED: Ondansetron 4 MG/2 ML VIAL IVP ONE (12:09)
[2021-04-03] MEDS ORDERED: *HR* Succinylcholine 200 MG/10 ML VIAL IVP ONE (12:09)
[2021-04-03] MEDS ORDERED: Lidocaine -MPF 2% 5 ML VIAL SQ ONE (12:09)
[2021-04-03] MEDS ORDERED: *HR* Rocuronium Bromide 50 MG/5 ML VIAL IVP ONE (12:09)
[2021-04-03] MEDS ORDERED: Perflutren Lipid Microsphere 1.3 ML in 0.9 % Sodium Chloride 8.7 ML IVP PRN (12:48)
[2021-04-03] MEDS ORDERED: Nitroglycerin 0.4 MG TAB.SUBL SL PRN (12:50)
[2021-04-03] MEDS ORDERED: Levalbuterol 1 PUFF INHALER IH PRN (12:50)
[2021-04-03] MEDS ORDERED: Acetaminophen IV 1,000 MG/100 ML BAG IVPB PRN (13:04)
[2021-04-03] MEDS ORDERED: *HR* HYDROmorphone (PF) 1 MG/ML SYRINGE ONE (13:07)
[2021-04-03] MEDS: *HR* HYDROmorphone PF 0.5 MG/0.5 ML SYRINGE IVP PRN ×2 (13:08→13:19)
[2021-04-03] MEDS: *HR* OxyCODONE Immed Rel 5 MG TABLET PO PRN ×2 (15:18→23:29)
[2021-04-03] MEDS: Ringers Solution, Lactated 1,000 ML IVC SCH (17:40)
[2021-04-03] MEDS: Apixaban 5 MG TABLET PO SCH (20:05)
[2021-04-03] MEDS: Ranolazine 500 MG TAB.ER.12H PO SCH (20:05)
[2021-04-04 01:19] LABS: Hematocrit 29.8 % (37.5-50.1); Immature Granulocytes % 0.5 % (0-4); Lymphocytes # 0.5 K/mcL (0.6-4.6); Lymphocytes % 13.2 %; Mean Corpuscular HGB Conc 30.2 g/dL (31.6-35.5); Mean Corpuscular Hemoglobin 23.4 pg (28.0-33.3); Mean Corpuscular Volume 77.6 fL (83.0-100.0); Mean Platelet Volume 9.3 fL (9.4-12.4); Monocytes # 0.1 K/mcL (0.0-1.3); Monocytes % 3.3 %; Neutrophils # 3.3 K/mcL (1.6-8.9); Platelet Count 233 K/mcL (140-400); Red Blood Count 3.84 M/mcL (4.19-5.50); Red Cell Distribution Width 21.2 % (11.5-14.5); White Blood Count 3.9 K/mcL (4.3-11.1)
[2021-04-04 01:25] LABS: INR 1.3; Prothrombin Time 14.4 Seconds (9.4-12.1)
[2021-04-04 01:45] LABS: BUN/Creatinine Ratio 11 (6-26); Blood Urea Nitrogen 8 mg/dL (8-23); Calcium 8.7 mg/dL (8.6-10.3); Carbon Dioxide 24 mEq/L (23-29); Chloride 103 mEq/L (98-107); Glucose 138 mg/dL (70-105); Osmolality,Calculated 281 (280-300); Potassium 4.2 mEq/L (3.5-5.1); Sodium 135 mEq/L (136-145); eGFR For African Americans > 60 (> 60); eGFR For Non-African Americans > 60 (> 60)
[2021-04-04 06:52] VITALS: BP 137/86
[2021-04-04] MEDS: *HR* OxyCODONE Immed Rel 5 MG TABLET PO PRN (07:39)
[2021-04-04] MEDS: Ranolazine 500 MG TAB.ER.12H PO SCH (07:40)
[2021-04-04] MEDS: Apixaban 5 MG TABLET PO SCH (07:40)
[2021-04-04] MEDS: Ringers Solution, Lactated 1,000 ML IVC SCH (07:41)
[2021-04-04] MEDS ORDERED: Isosorbide MONOnitrate (24 HR) 60 MG TAB.ER.24H PO SCH (09:00)
[2021-04-04] MEDS ORDERED: DilTIAZem CD (24hr) 120 MG CAP.ER.24H PO SCH (09:00)
[2021-04-04] MEDS ORDERED: Aspirin Enteric Coated 81 MG Tablet PO SCH (09:00)
[2021-04-04] MEDS ORDERED: hydroCHLOROthiazide 25 MG TABLET PO SCH (09:00)
== END 2021-04-04 12:10 | disposition home or self-care (01) | DRG 274 ==
LOC: INVDIALAB 08:07 → 2NNU 13:53
PROVIDERS: ADMIT Internal Medicine Cardiovascular Disease; ATTEND Internal Medicine Cardiovascular Disease

== ENCOUNTER 2021-05-14 09:06 | Inpatient (IN) ==
[2021-05-14] MEDS ORDERED: Isovue-370 500 ML BOTTLE IVP ONE (09:24)
[2021-05-14 09:55] LABS: Basophils % 0.4 %; Eosinophils % 0.5 %; Hemoglobin 9.9 g/dL (12.9-16.9); Immature Granulocytes % 0.5 % (0-4); Lymphocytes # 1.2 K/mcL (0.6-4.6); Lymphocytes % 21.5 %; Mean Corpuscular HGB Conc 29.1 g/dL (31.6-35.5); Mean Corpuscular Hemoglobin 24.3 pg (28.0-33.3); Mean Corpuscular Volume 83.3 fL (83.0-100.0); Mean Platelet Volume 8.7 fL (9.4-12.4); Monocytes # 0.7 K/mcL (0.0-1.3); Monocytes % 11.5 %; Neutrophils # 3.7 K/mcL (1.6-8.9); Platelet Count 217 K/mcL (140-400); Red Blood Count 4.08 M/mcL (4.19-5.50); Red Cell Distribution Width 22.3 % (11.5-14.5); Segmented Neutrophils % 65.6 %; White Blood Count 5.6 K/mcL (4.3-11.1)
[2021-05-14 10:17] LABS: BUN/Creatinine Ratio 21 (6-26); Blood Urea Nitrogen 16 mg/dL (8-23); Carbon Dioxide 29 mEq/L (23-29); Chloride 105 mEq/L (98-107); Glucose 125 mg/dL (70-105); Osmolality,Calculated 291 (280-300); Potassium 4.4 mEq/L (3.5-5.1); Sodium 139 mEq/L (136-145); eGFR For African Americans > 60 (> 60); eGFR For Non-African Americans > 60 (> 60)
[2021-05-14 11:57] LABS: INR 1.1; Prothrombin Time 12.8 Seconds (9.4-12.1)
[2021-05-14 12:04] LABS: Albumin 3.3 g/dL (3.5-5.7); Bilirubin,Direct 0.1 mg/dL (0.0-0.2); Bilirubin,Indirect 0.3 mg/dL (0.0-1.0); Bilirubin,Total 0.4 mg/dL (0.3-1.0); Globulin 3.2 g/dL (2.4-3.5); Total Protein 6.5 g/dL (6.4-8.9)
[2021-05-14] MEDS: Acetaminophen 325 MG TABLET PO PRN ×2 (13:54→20:58)
[2021-05-14] MEDS: Ipratropium Neb 0.5 MG NEBULIZER IH SCH ×2 (16:04→22:54)
[2021-05-14] MEDS: Levalbuterol Neb 0.63 MG/3 ML IH SCH ×2 (16:04→22:54)
[2021-05-14] MEDS ORDERED: Nitroglycerin 0.4 MG TAB.SUBL SL PRN (16:40)
[2021-05-14] MEDS: Aspirin 81 MG TAB.CHEW PO SCH (17:48)
[2021-05-14] MEDS ORDERED: *HR* OxyCODONE Immed Rel 5 MG TABLET PO PRN (18:06)
[2021-05-14] MEDS ORDERED: Cyanocobalamin (B-12) 1,000 MCG/ML VIAL SQ ONE (18:13)
[2021-05-14] MEDS ORDERED: Iron Sucrose Complex 200 MG in 0.9 % Sodium Chloride 100 ML IVPB ONE (18:14)
[2021-05-14] MEDS: Ranolazine 500 MG TAB.ER.12H PO SCH (20:59)
[2021-05-14] MEDS: Pregabalin 75 MG CAPSULE PO SCH (20:59)
[2021-05-14] MEDS: Apixaban 5 MG TABLET PO SCH (21:00)
[2021-05-15] MEDS: Levalbuterol Neb 0.63 MG/3 ML IH SCH ×4 (03:49→22:31)
[2021-05-15] MEDS: Ipratropium Neb 0.5 MG NEBULIZER IH SCH ×4 (03:49→22:30)
[2021-05-15] MEDS ORDERED: Regadenoson 0.4 MG/5 ML SYRINGE IVP ONE (06:17)
[2021-05-15 08:45] LABS: Estimated Average Glucose 128 mg/dl; Hemoglobin A1C 6.1 %
[2021-05-15] MEDS: Pregabalin 75 MG CAPSULE PO SCH ×2 (08:55→21:40)
[2021-05-15] MEDS: DilTIAZem CD (24hr) 120 MG CAP.ER.24H PO SCH (08:55)
[2021-05-15] MEDS: Isosorbide MONOnitrate (24 HR) 60 MG TAB.ER.24H PO SCH (08:56)
[2021-05-15] MEDS: Ranolazine 500 MG TAB.ER.12H PO SCH ×2 (08:56→21:41)
[2021-05-15] MEDS: Aspirin 81 MG TAB.CHEW PO SCH ×2 (08:57→10:49)
[2021-05-15] MEDS: Apixaban 5 MG TABLET PO SCH ×3 (08:57→21:41)
[2021-05-15] MEDS ORDERED: Polymyxin B Sulfate 500,000 UNIT, Sodium Chloride IRRigation 1,000 ML IR ONE (10:40)
[2021-05-15] MEDS: *HR* OxyCODONE Immed Rel 5 MG TABLET PO PRN ×3 (13:57→23:00)
[2021-05-15] MEDS: diazePAM 10 MG TABLET PO PRN (13:58)
[2021-05-16] MEDS: *HR* OxyCODONE Immed Rel 5 MG TABLET PO PRN ×4 (03:21→20:26)
[2021-05-16] MEDS: Ipratropium Neb 0.5 MG NEBULIZER IH SCH ×4 (03:34→22:35)
[2021-05-16] MEDS: Levalbuterol Neb 0.63 MG/3 ML IH SCH ×4 (03:34→22:35)
[2021-05-16 04:37] LABS: Hemoglobin 9.8 g/dL (12.9-16.9); Mean Corpuscular HGB Conc 28.8 g/dL (31.6-35.5); Mean Corpuscular Hemoglobin 24.4 pg (28.0-33.3)
[2021-05-16 04:38] LABS: Mean Corpuscular Volume 84.8 fL (83.0-100.0); Mean Platelet Volume 9.4 fL (9.4-12.4); Platelet Count 215 K/mcL (140-400); Red Blood Count 4.01 M/mcL (4.19-5.50); Red Cell Distribution Width 22.2 % (11.5-14.5); White Blood Count 5.1 K/mcL (4.3-11.1)
[2021-05-16 05:01] LABS: BUN/Creatinine Ratio 14 (6-26); Blood Urea Nitrogen 13 mg/dL (8-23); Calcium 8.9 mg/dL (8.6-10.3); Carbon Dioxide 28 mEq/L (23-29); Chloride 101 mEq/L (98-107); Glucose 170 mg/dL (70-105); Osmolality,Calculated 284 (280-300); Potassium 4.5 mEq/L (3.5-5.1); Sodium 135 mEq/L (136-145); eGFR For African Americans > 60 (> 60); eGFR For Non-African Americans > 60 (> 60)
[2021-05-16] MEDS: Aspirin 81 MG TAB.CHEW PO SCH (08:11)
[2021-05-16] MEDS: Pregabalin 75 MG CAPSULE PO SCH ×2 (08:12→20:26)
[2021-05-16] MEDS: Ranolazine 500 MG TAB.ER.12H PO SCH ×2 (08:12→20:26)
[2021-05-16] MEDS: Apixaban 5 MG TABLET PO SCH ×2 (08:13→20:27)
[2021-05-16] MEDS: Isosorbide MONOnitrate (24 HR) 60 MG TAB.ER.24H PO SCH (08:13)
[2021-05-16] MEDS: DilTIAZem CD (24hr) 120 MG CAP.ER.24H PO SCH (08:13)
[2021-05-16] MEDS: diazePAM 10 MG TABLET PO PRN (15:59)
[2021-05-17] MEDS: *HR* OxyCODONE Immed Rel 5 MG TABLET PO PRN ×6 (00:38→22:41)
[2021-05-17] MEDS: diazePAM 10 MG TABLET PO PRN ×2 (02:15→17:30)
[2021-05-17] MEDS: Ipratropium Neb 0.5 MG NEBULIZER IH SCH ×4 (04:36→20:01)
[2021-05-17] MEDS: Levalbuterol Neb 0.63 MG/3 ML IH SCH ×4 (04:36→20:01)
[2021-05-17] MEDS: Aspirin 81 MG TAB.CHEW PO SCH (07:22)
[2021-05-17] MEDS: Pregabalin 75 MG CAPSULE PO SCH ×2 (07:23→20:44)
[2021-05-17] MEDS: Isosorbide MONOnitrate (24 HR) 60 MG TAB.ER.24H PO SCH (07:23)
[2021-05-17] MEDS: DilTIAZem CD (24hr) 120 MG CAP.ER.24H PO SCH (07:23)
[2021-05-17] MEDS: Ranolazine 500 MG TAB.ER.12H PO SCH ×2 (07:23→20:44)
[2021-05-17] MEDS: Apixaban 5 MG TABLET PO SCH ×2 (07:23→20:44)
[2021-05-18] MEDS: Levalbuterol Neb 0.63 MG/3 ML IH SCH ×4 (04:14→21:44)
[2021-05-18] MEDS: Ipratropium Neb 0.5 MG NEBULIZER IH SCH ×4 (04:14→21:44)
[2021-05-18] MEDS: Isosorbide MONOnitrate (24 HR) 60 MG TAB.ER.24H PO SCH (09:17)
[2021-05-18] MEDS: DilTIAZem CD (24hr) 120 MG CAP.ER.24H PO SCH (09:18)
[2021-05-18] MEDS: Apixaban 5 MG TABLET PO SCH ×2 (09:18→21:15)
[2021-05-18] MEDS: Aspirin 81 MG TAB.CHEW PO SCH (09:18)
[2021-05-18] MEDS: Pregabalin 75 MG CAPSULE PO SCH ×2 (09:19→21:16)
[2021-05-18] MEDS: Ranolazine 500 MG TAB.ER.12H PO SCH ×2 (09:19→21:16)
[2021-05-18] MEDS: *HR* OxyCODONE Immed Rel 5 MG TABLET PO PRN ×3 (09:26→21:15)
[2021-05-18] MEDS ORDERED: Lidocaine Viscous Oral Soln 15 ML SOLUTION MM PRN (11:09)
[2021-05-18] MEDS ORDERED: *HR* FentaNYL (PF) 100 MCG/2 ML VIAL IVP PRN (11:09)
[2021-05-18] MEDS ORDERED: *HR* Midazolam HCl 5 MG/5 ML VIAL IVP PRN (11:10)
[2021-05-18] MEDS ORDERED: 0.9 % Sodium Chloride 500 ML IVC ONE (11:10)
[2021-05-18] MEDS: diazePAM 10 MG TABLET PO PRN (16:36)
[2021-05-19] MEDS: *HR* OxyCODONE Immed Rel 5 MG TABLET PO PRN ×5 (02:36→20:36)
[2021-05-19] MEDS: Levalbuterol Neb 0.63 MG/3 ML IH SCH ×4 (04:22→21:50)
[2021-05-19] MEDS: Ipratropium Neb 0.5 MG NEBULIZER IH SCH ×4 (04:22→21:50)
[2021-05-19] MEDS: diazePAM 10 MG TABLET PO PRN ×3 (04:38→20:36)
[2021-05-19] MEDS: Isosorbide MONOnitrate (24 HR) 60 MG TAB.ER.24H PO SCH (08:34)
[2021-05-19] MEDS: Pregabalin 75 MG CAPSULE PO SCH ×2 (08:36→20:37)
[2021-05-19] MEDS: DilTIAZem CD (24hr) 120 MG CAP.ER.24H PO SCH (08:37)
[2021-05-19] MEDS: Aspirin 81 MG TAB.CHEW PO SCH (08:37)
[2021-05-19] MEDS: Ranolazine 500 MG TAB.ER.12H PO SCH ×2 (08:37→20:37)
[2021-05-19] MEDS: Acetaminophen 325 MG TABLET PO PRN (08:42)
[2021-05-20] MEDS: *HR* OxyCODONE Immed Rel 5 MG TABLET PO PRN ×5 (00:34→21:36)
[2021-05-20] MEDS: Levalbuterol Neb 0.63 MG/3 ML IH SCH ×4 (03:43→22:19)
[2021-05-20] MEDS: Ipratropium Neb 0.5 MG NEBULIZER IH SCH ×4 (03:43→22:19)
[2021-05-20] MEDS: diazePAM 10 MG TABLET PO PRN ×2 (04:56→14:04)
[2021-05-20 06:50] LABS: Basophils % 0.4 %; Eosinophils % 0.2 %; Hematocrit 32.1 % (37.5-50.1); Hemoglobin 9.7 g/dL (12.9-16.9); Immature Granulocytes % 0.6 % (0-4); Lymphocytes # 0.9 K/mcL (0.6-4.6); Lymphocytes % 19.8 %; Mean Corpuscular HGB Conc 30.2 g/dL (31.6-35.5); Mean Corpuscular Hemoglobin 25.3 pg (28.0-33.3); Mean Corpuscular Volume 83.8 fL (83.0-100.0); Mean Platelet Volume 9.5 fL (9.4-12.4); Monocytes # 0.7 K/mcL (0.0-1.3); Monocytes % 13.9 %; Neutrophils # 3.1 K/mcL (1.6-8.9); Platelet Count 263 K/mcL (140-400); Red Blood Count 3.83 M/mcL (4.19-5.50); Red Cell Distribution Width 22.3 % (11.5-14.5); Segmented Neutrophils % 65.1 %; White Blood Count 4.7 K/mcL (4.3-11.1)
[2021-05-20 07:06] LABS: BUN/Creatinine Ratio 25 (6-26); Blood Urea Nitrogen 21 mg/dL (8-23); Calcium 8.8 mg/dL (8.6-10.3); Carbon Dioxide 28 mEq/L (23-29); Chloride 101 mEq/L (98-107); Glucose 125 mg/dL (70-105); Osmolality,Calculated 282 (280-300); Potassium 4.3 mEq/L (3.5-5.1); Sodium 134 mEq/L (136-145); eGFR For African Americans > 60 (> 60); eGFR For Non-African Americans > 60 (> 60)
[2021-05-20] MEDS: Pregabalin 75 MG CAPSULE PO SCH ×2 (08:22→21:36)
[2021-05-20] MEDS: Ranolazine 500 MG TAB.ER.12H PO SCH ×2 (08:22→21:36)
[2021-05-20] MEDS: Isosorbide MONOnitrate (24 HR) 60 MG TAB.ER.24H PO SCH (08:23)
[2021-05-20] MEDS: Aspirin 81 MG TAB.CHEW PO SCH (08:23)
[2021-05-20] MEDS: DilTIAZem CD (24hr) 120 MG CAP.ER.24H PO SCH (08:23)
[2021-05-20] MEDS ORDERED: Melatonin 3 MG TABLET PO PRN (21:42)
[2021-05-21] MEDS: *HR* OxyCODONE Immed Rel 5 MG TABLET PO PRN ×3 (04:24→20:33)
[2021-05-21] MEDS: diazePAM 10 MG TABLET PO PRN (04:24)
[2021-05-21] MEDS: Ipratropium Neb 0.5 MG NEBULIZER IH SCH ×3 (04:46→15:56)
[2021-05-21] MEDS: Levalbuterol Neb 0.63 MG/3 ML IH SCH ×2 (04:46→10:53)
[2021-05-21 07:51] LABS: Basophils % 0.5 %; Eosinophils % 0.5 %; Hematocrit 31.4 % (37.5-50.1); Hemoglobin 9.1 g/dL (12.9-16.9); Immature Granulocytes % 1.1 % (0-4); Lymphocytes # 0.8 K/mcL (0.6-4.6); Lymphocytes % 21.8 %; Mean Corpuscular Hemoglobin 24.5 pg (28.0-33.3); Mean Corpuscular Volume 84.6 fL (83.0-100.0); Mean Platelet Volume 9.1 fL (9.4-12.4); Monocytes # 0.6 K/mcL (0.0-1.3); Monocytes % 16.6 %; Neutrophils # 2.2 K/mcL (1.6-8.9); Platelet Count 257 K/mcL (140-400); Red Blood Count 3.71 M/mcL (4.19-5.50); Red Cell Distribution Width 21.7 % (11.5-14.5); Segmented Neutrophils % 59.5 %; White Blood Count 3.7 K/mcL (4.3-11.1)
[2021-05-21 08:12] LABS: BUN/Creatinine Ratio 28 (6-26); Blood Urea Nitrogen 23 mg/dL (8-23); Calcium 8.7 mg/dL (8.6-10.3); Carbon Dioxide 31 mEq/L (23-29); Chloride 100 mEq/L (98-107); Glucose 141 mg/dL (70-105); Osmolality,Calculated 284 (280-300); Potassium 4.1 mEq/L (3.5-5.1); Sodium 134 mEq/L (136-145); eGFR For African Americans > 60 (> 60); eGFR For Non-African Americans > 60 (> 60)
[2021-05-21] MEDS: Ranolazine 500 MG TAB.ER.12H PO SCH (09:09)
[2021-05-21] MEDS: Isosorbide MONOnitrate (24 HR) 60 MG TAB.ER.24H PO SCH (09:09)
[2021-05-21] MEDS: DilTIAZem CD (24hr) 120 MG CAP.ER.24H PO SCH (09:09)
[2021-05-21] MEDS: Aspirin 81 MG TAB.CHEW PO SCH (09:09)
[2021-05-21] MEDS: Pregabalin 75 MG CAPSULE PO SCH (09:09)
[2021-05-21] MEDS ORDERED: Levalbuterol Neb 0.63 MG/3 ML IH PRN (11:48)
[2021-05-21] MEDS ORDERED: Ondansetron 4 MG/2 ML VIAL IVP PRN ×2 (13:10→17:33)
[2021-05-21] MEDS ORDERED: *HR* FentaNYL (PF) 100 MCG/2 ML VIAL ONE (13:21)
[2021-05-21] MEDS ORDERED: *HR* Propofol 200 MG/20 ML VIAL IVP ONE (13:21)
[2021-05-21] MEDS ORDERED: Lidocaine HCL 4 ML Topical Solution (Laryng-O-Jet Kit Sterile Pak) TP ONE (13:22)
[2021-05-21] MEDS ORDERED: Lidocaine -MPF 2% 2 ML VIAL ONE (13:22)
[2021-05-21] MEDS ORDERED: *HR* Midazolam HCl 2 MG/2 ML VIAL ONE (13:22)
[2021-05-21] MEDS ORDERED: *HR* Rocuronium Bromide 50 MG/5 ML VIAL ONE ×2 (13:22→14:27)
[2021-05-21] MEDS ORDERED: Polymyxin B Sulfate 500,000 UNIT, Sodium Chloride IRRigation 1,000 ML IR ONE (14:35)
[2021-05-21] MEDS ORDERED: Sugammadex Sodium 200 MG/2 ML VIAL IV ONE (15:01)
[2021-05-21] MEDS: *HR* HYDROmorphone PF 0.5 MG/0.5 ML SYRINGE IVP PRN ×3 (16:45→17:10)
[2021-05-21] MEDS ORDERED: Naloxone 0.4 MG/ML INJ IVP PRN (17:33)
[2021-05-21] MEDS ORDERED: *HR* HYDROcodone/Acet 5/325 mg TABLET PO PRN (17:33)
[2021-05-21] MEDS ORDERED: Acetaminophen 325 MG TABLET PO PRN (17:33)
[2021-05-21] MEDS: Apixaban 5 MG TABLET PO SCH (20:33)
[2021-05-22] MEDS: CeFAZolin 2 GM/120 ML BAG IVPB SCH ×2 (00:35→08:43)
[2021-05-22] MEDS: Ringers Solution, Lactated 1,000 ML IVC SCH ×2 (00:39)
[2021-05-22] MEDS: *HR* OxyCODONE Immed Rel 5 MG TABLET PO PRN ×2 (03:24→13:02)
[2021-05-22] MEDS: diazePAM 5 MG TABLET PO PRN ×2 (05:37→13:02)
[2021-05-22] MEDS ORDERED: Tiotropium 10 INH DOSE IH ONE (07:37)
[2021-05-22 07:44] VITALS: BP 117/73; PULSE 79; TEMP 97.7; O2SAT 95
[2021-05-22] MEDS: Apixaban 5 MG TABLET PO SCH (08:44)
[2021-05-22] MEDS ORDERED: hydroCHLOROthiazide 25 MG TABLET PO SCH (09:00)
[2021-05-22] MEDS ORDERED: Budesonide/Formoterol 160/4.5 1 PUFF INH IH SCH (10:00)
[2021-05-22] MEDS ORDERED: Tiotropium 10 INH DOSE IH SCH (10:00)
[2021-05-22 11:11] LABS: Adenovirus Not Detected (Not Detect); Bordetella Pertussis Not Detected (Not Detect); Chlamydophila pneumoniae Not Detected (Not Detect); Coronavirus 229E Not Detected (Not Detect); Coronavirus HKU1 Not Detected (Not Detect); Coronavirus NL63 Not Detected (Not Detect); Coronavirus OC43 Not Detected (Not Detect); Human Metapneumovirus Not Detected (Not Detect); Human Rhinovirus/Enterovirus Not Detected (Not Detect); Influenza A Subtype 2009 H1 Not Detected (Not Detect); Influenza B Not Detected (Not Detect); Mycoplasma pneumoniae Not Detected (Not Detect); Parainfluenza Virus 1 Not Detected (Not Detect); Parainfluenza Virus 2 Not Detected (Not Detect); Parainfluenza Virus 3 Not Detected (Not Detect); Parainfluenza Virus 4 Not Detected (Not Detect); Respiratory Syncytial Virus Not Detected (Not Detect); SARS-CoV-2 Not Detected (Not Detect)
== END 2021-05-22 14:30 | disposition other institution (70) | DRG 460 ==
LOC: 3NENU → SUATTDRO 09:07
PROVIDERS: ADMIT Orthopaedic Surgery Orthopaedic Surgery of the Spine; ATTEND Orthopaedic Surgery Orthopaedic Surgery of the Spine